=== PATIENT | male | born 1985 | race Caucasian/White ===

== ENCOUNTER 2018-10-02 15:48 | Emergency (ER) | payer MEDICAID, OTHER, SELFPAY ==
[~2018-10-02] VITALS: Ht 180.3 cm; Wt 112.8 kg
[2018-10-02] MEDS ORDERED: PRIL20TA2 PO (15:59)
[2018-10-02] MEDS ORDERED: LIDOCAINE W/EPINEPHRINE 1% 20ML VIAL SC ONE (17:30)
[2018-10-02] MEDS ORDERED: ADACEL/BOOSTRIX VACCINE (DIPHTH/PERTUSS/ACELL/TETANUS)0.5ML SYR (90715) IM ONE (17:30)
--- NOTE | 2018-10-02 18:04 | REP ---
RIGHT FOOT, TWO VIEWS: HISTORY: Foreign body. There is no acute fracture or dislocation. The joint spaces are normal in appearance. There is no radiopaque foreign body. IMPRESSION:There is no acute fracture or dislocation. Electronically Signed by Micah Fuentes MD 10/02/2018 06:13 P
[2018-10-02] MEDS ORDERED: KEFL500C17 PO (18:37)
[2018-10-02] MEDS ORDERED: CEPHALEXIN 500 MG CAP PO ONE (18:45)
[2018-10-02 18:53] VITALS: BP 127/67
== END 2018-10-02 19:04 | disposition home or self-care (01) ==
LOC: M ED 15:48
DX: S91.311A Laceration without foreign body, right foot, initial encounter (principal); W25.XXXA Contact with sharp glass, initial encounter; Y92.098 Other place in other non-institutional residence as the place of occurrence of the external cause; F17.200 Nicotine dependence, unspecified, uncomplicated; Z88.5 Allergy status to narcotic agent

== ENCOUNTER 2018-12-08 00:08 | Emergency (ER) | payer MEDICAID, OTHER ==
[~2018-12-08] VITALS: Ht 180.3 cm; Wt 109.1 kg
[~2018-12-08 00:08] MED LIST: KEFL500C17 PO; PRIL20TA2 PO
[2018-12-08 00:09] VITALS: BP 139/88
[2018-12-08] MEDS ORDERED: diphenhydrAMINE 50 MG CAP PO ONE (01:15)
[2018-12-08] MEDS ORDERED: predniSONE 20 MG TAB PO ONE (01:15)
[2018-12-08] MEDS ORDERED: hydrOXYzine 25 MG TAB PO STA (01:15)
[2018-12-08] MEDS ORDERED: HYDR-3363 PO (01:18)
[2018-12-08] MEDS ORDERED: PRED20TA PO (01:18)
== END 2018-12-08 01:40 | disposition home or self-care (01) ==
LOC: M ED 00:08
DX: L23.7 Allergic contact dermatitis due to plants, except food (principal); K21.9 Gastro-esophageal reflux disease without esophagitis; Z79.899 Other long term (current) drug therapy; Z88.5 Allergy status to narcotic agent; F17.210 Nicotine dependence, cigarettes, uncomplicated

== ENCOUNTER 2019-04-01 08:13 | Day surgery (SDC) | payer OTHER ==
[~2019-04-01] VITALS: Ht 180.3 cm; Wt 116.6 kg
[~2019-04-01 08:13] MED LIST changes: +HYDR-3363 PO; +LR 1,000 ML IV ONE; +NAPR-832 PO; +PRED20TA PO; +ceFAZolin SOD 1 GM in D5W MINI-BAG PLUS 50 ML IV ONE; +ceFAZolin SOD 2 GM in IV 1 EA IV ONE
[2019-04-01] MEDS ORDERED: PROPOFOL 200 MG/20 ML VIAL As Ordered ONE ×2 (09:10→13:45)
[2019-04-01] MEDS ORDERED: LIDOCAINE 2% INJ 100 MG/5 ML SDV (FOR ANES.) As Ordered ONE (09:10)
[2019-04-01] MEDS ORDERED: ROCURONIUM BROMIDE 50 MG/5 ML VIAL As Ordered ONE ×2 (09:10→12:55)
[2019-04-01] MEDS ORDERED: MIDAZOLAM INJ 2 MG/2 ML VIAL (J2250) As Ordered ONE (09:10)
[2019-04-01] MEDS ORDERED: ONDANSETRON 4MG/2ML VIAL (J2405) As Ordered ONE (09:11)
[2019-04-01] MEDS ORDERED: dexameTHASONE 4 MG/ML 1ML VIAL (J1100) As Ordered ONE (09:11)
[2019-04-01] MEDS ORDERED: fentaNYL 100 MCG/2 ML INJECTION (J3010) As Ordered ONE ×3 (09:11→13:39)
[2019-04-01] MEDS ORDERED: SUGAMMADEX SODIUM 500 MG/5 ML VIAL (BRIDION) As Ordered ONE (09:21)
[2019-04-01] MEDS ORDERED: LIDOCAINE 1% SDV INJ 30 ML VIAL As Ordered ONE (11:04)
[2019-04-01] MEDS ORDERED: BUPIVACAINE HCL 0.25% 30 ML VIAL As Ordered ONE (11:04)
[2019-04-01] MEDS ORDERED: KETOROLAC 60 MG/2 ML VIAL (J1885) As Ordered ONE (13:50)
[2019-04-01] MEDS ORDERED: ACETAMINOPHEN 1000MG 100ML IV BTL (OFIRMEV) (J0131 PER 10MG) As Ordered ONE (13:50)
[2019-04-01] MEDS ORDERED: ONDANSETRON 4MG/2ML VIAL (J2405) IV PRN ×2 (15:15→15:30)
[2019-04-01] MEDS ORDERED: HYDROMORPHONE HCL 0.5 MG/ 0.5 ML SYRINGE (J1170 PER 1) IV PRN (15:15)
[2019-04-01] MEDS ORDERED: fentaNYL 100 MCG/2 ML INJECTION (J3010) IV PRN (15:15)
[2019-04-01] MEDS ORDERED: LR 1,000 ML IV SCH (15:15)
[2019-04-01] MEDS ORDERED: NORCO, ANEXSIA 5/325MG TABLET (HYDROcodone/ACETAMINOPHEN) PO PRN ×3 (15:15)
[2019-04-01 16:15] VITALS: BP 117/70
[2019-04-01] MEDS ORDERED: KETOROLAC 30 MG/ML VIAL (J1885) IV PRN (21:00)
--- NOTE | 2019-04-02 13:00 | ROOPDOC ---
[facility] Report Of Operation Report of Operation DATE OF PROCEDURE: 04/01/19 PREPROCEDURE DIAGNOSES: Right inguinal hernia. POSTPROCEDURE DIAGNOSES: Right indirect inguinalscrotal hernia. PROCEDURE: Robotic-assisted laparoscopic repair of incarcerated right inguinal mesh scrotal hernia. SURGEON: Mohinder Ledezma MD SYNTHETIC PLASTERER: Arianna Mcduffie, ÓSCAR Ms. Mcduffie assisted me with the placement of ports, management of the robotic tower and instruments on the field as well as of the mesh what I scrubbed out at the surgeon's console and with closure of the ports. ANESTHESIA: Gen. anesthesia. ESTIMATED BLOOD LOSS: Approximately 20 mL. COMPLICATIONS: None. REMARKS: Moderately obese, rather very protuberant abdomen with a large long- standing, nonreducible right inguinalscrotal hernia. PROCEDURE NOTE: Incarcerated omentum and partially small bowel within the inguinal canal. Moderate sized defect with a very large long peritoneum/hernia sac that was fully reduced back in the abdomen. Large 10 x 15 polyester Progrip mesh placed to cover the myopectineal orifice posteriorly and secured to the Chris's ligament and superior medial transversalis fascia with 2-0 Vicryl. DESCRIPTION OF PROCEDURE: Patient received 2 g of Ancef IV preoperatively for wound prophylaxis. Patient was brought to the operating room, placed supine on the operating table. Compression boots placed in both lower extremities for DVT prophylaxis. After adequate general anesthesia started, he was placed on a lithotomy position. A cardenas catheter placed without difficulty. His abdomen and groin/pelvic area then prepped and draped in the usual sterile fashion. After a surgical timeout we began our surgery. Entry to the abdomen done through a small incision 2 cms above the umbilical skin cleft. A Veress needle is inserted on a controlled fashion. CO2 insufflation started to pressure 15 mmHg. Using the same incision a 8 mm robotic optical port was then placed under direct vision of laparoscope. The insertion site was inspected for injury and none was found. Patient was then positioned on a Trendelenburg position with the symptomatic (right) side tilted upwards for adequate view of the hernia defect. Two working ports placed to the right and left of the camera port along the same line. The da Maribel robot to our was then positioned in between the patient's legs and the trochars docked onto the robot. I then unscrubbed and took control of the camera and the laparoscopic instruments at the surgeon's console. A forced bipolar forceps with bipolar cautery on the left arm and A lisbeth-cut laparoscopic scissor with unipolar cautery in the right was used. Operative Findings: A large opening at the internal ring containing part of the wall of the cecum as well as the appendix within the inguinal canal. Part of the wall of the cecum makes up the hernia sac. The peritoneum was opened up about 5 cm above the superior edge of the fascial defect of the inguinal hernia starting at the medial umbilical ligament proceeding laterally towards the level of the anterior superior iliac spine. The preperitoneal space is entered in the peritoneum was bluntly dissected away from the back of the abdominal wall starting laterally moving medially ending in the space of Retzius between the bladder and the pubic tubercle. The preperitoneal dissection was extended partly superiorly but mostly inferiorly towards the iliopubic tract laterally and beyond the Chris's ligament and pubic tubercle inferiorly. The lower flap of the peritoneum was adequately mobilized away from the preperitoneal tissue. On approaching the inguinal hernia defect the hernia sac was circumferentially dissected pulled back into the preperitoneal space and carefully dissected off the testicular vessels and vas deferens. He has a large and redundant inguinal hernia sac which has good amount of fibrotic scaring. He also has some moderate amounts of cord lipoma within the core surrounding the spermatic cord structures that needed to be dissected out of the inguinal canal. I continued dissecting until the sac was fully detached and the cord lipoma was reduced back to the preperitoneum. After full reduction of the hernia sac the testicular cord and vessels were further parietalized following their usual anatomic course inferiorly after they diverged in course. The internal ring opening create that seems to limit the area where the mesh would adhere tox used a 0 stress affects barbed suture and narrowed the internal ring opening by opposing the muscles making up the lateral john of the internal opening to the inguinal ligament until only a small spaces left to accommodate the spermatic cord structures. This is more to create enough surface area for the mesh to adhere to prevent sucking the mesh into the internal ring and inguinal canal. After enough preperitoneal space was dissected and prepared, he checked for adequate hemostasis. The small amount of bleeding was suctioned off. I chose a 10 x 15 cm Parietex ProGrip self fixating mesh. I had my personnel security assistant trim the inferolateral edge to creare a "skirt" around the iliac vessels to avoid folding. This was folded with the center of the mesh marked for positioning. This was then delivered intra-abdominally through one of the trochars. In a controlled fashion this was positioned into the preperitoneal space with the medial side towards the pubic tubercle and the previously marked center of the mesh abutting the inferior epigastric vessels. The mesh was then carefully infolded and positioned in place with adequate overlap around the internal ring to cover the hernia defect. The mesh has adequate coverage for the direct hernia spaces as well as the femoral hernia space. This was carefully pressed onto the abdominal wall and made sure that it was flattened up. After careful placement of the mesh, the peritoneal opening was then closed with a running suture of 2-0V LOC suture. As the hernia sac was long and redundant I incorporated the hernia sac into the closure of the peritoneum. I then surveyed the abdomen and pelvis for any signs of injury. The pieces of the preperitoneal cord lipoma that was removed was retrieved by my personnel security assistant. Once satisfied I scrubbed back in. The instruments were removed. The abdomen was deflated. All ports were removed. The skin incisions were closed with 4-0 Monocryl in subcuticular fashion. The incisions were covered with Dermabond. The port sites were again infiltrated with local anesthesia. An ilioinguinal nerve block was also performed. . MOHINDER LEDEZMA MD Apr 02, 2019 13:00
== END 2019-04-01 16:25 | disposition home or self-care (01) ==
LOC: M SDC 08:13
PROVIDERS: ATTEND Surgery
DX: K40.30 Unilateral inguinal hernia, with obstruction, without gangrene, not specified as recurrent (principal); E66.01 Morbid (severe) obesity due to excess calories; Z79.899 Other long term (current) drug therapy; Z88.5 Allergy status to narcotic agent; F17.290 Nicotine dependence, other tobacco product, uncomplicated
CPT/HCPCS: 49650; 88302; C1781; J0131; J0690; J1100; J1885; J2250; J2405; J3010

== ENCOUNTER → 2020-08-13 | Outpatient (CLI) | payer OTHER ==
[~2020-08-13] MED LIST changes: -LR 1,000 ML IV ONE; -ceFAZolin SOD 1 GM in D5W MINI-BAG PLUS 50 ML IV ONE; -ceFAZolin SOD 2 GM in IV 1 EA IV ONE
--- NOTE | 2020-08-13 16:12 | REP ---
INDICATION: LOW BACK PAIN. COMPARISON: None. FINDINGS: Five views of the lumbosacral spine show no acute fracture, dislocation or subluxation. The intervertebral disc spaces are symmetric and well maintained. There is no spondylolysis or spondylolisthesis. The pedicles are intact bilaterally and there is no destructive osseous lesion. Incidental Schmorl's nodes are seen at all levels. IMPRESSION: Unremarkable lumbosacral spine series. <Electronically signed by Prosper Lopez > 08/13/20 [id number]
== END ==
LOC: M RAD 15:48
PROVIDERS: ATTEND Nurse Practitioner
DX: M54.5 Low back pain (principal)

== ENCOUNTER 2021-10-28 13:21 | Emergency (ER) | payer OTHER ==
[2021-10-28] MEDS ORDERED: PRED10TA2 PO (14:50)
[2021-10-28] MEDS ORDERED: NAPR-885 PO ×2 (14:51→14:52)
[2021-10-28 15:11] VITALS: BP 140/88
[2021-10-28] MEDS ORDERED: KETOROLAC 60MG 2ML VIAL IM ONE (15:15)
== END 2021-10-28 15:26 | disposition home or self-care (01) ==
LOC: M ED 13:21
DX: M54.50 Low back pain, unspecified (principal); M54.32 Sciatica, left side; F17.200 Nicotine dependence, unspecified, uncomplicated; Z88.5 Allergy status to narcotic agent; Z79.1 Long term (current) use of non-steroidal anti-inflammatories (NSAID)
CPT/HCPCS: 99283; J1885

== ENCOUNTER 2021-11-14 21:59 | Emergency (ER) | payer OTHER ==
[~2021-11-14] VITALS: Ht 180.3 cm; Wt 109.1 kg
[~2021-11-14 21:59] MED LIST changes: +NAPR-885 PO; +PRED10TA2 PO
[2021-11-15] MEDS ORDERED: AMOX875T2 PO (05:13)
[2021-11-15] MEDS ORDERED: TRAM50TA2 PO (05:13)
[2021-11-15] MEDS ORDERED: AUGMENTIN 875 MG TAB PO ONE (05:15)
[2021-11-15] MEDS ORDERED: traMADol 50 MG TAB PO ONE (05:15)
[2021-11-15 05:23] VITALS: BP 136/66
== END 2021-11-15 05:26 | disposition home or self-care (01) ==
LOC: M ED 21:59
DX: K04.7 Periapical abscess without sinus (principal); Z88.5 Allergy status to narcotic agent

== ENCOUNTER → 2022-03-18 | Outpatient (CLI) | payer OTHER ==
[~2022-03-18] MED LIST changes: +AMOX875T2 PO; +TRAM50TA2 PO
== END ==
LOC: M OUTALCOH 08:02
PROVIDERS: ATTEND Psychiatry & Neurology Psychiatry
DX: F10.10 Alcohol abuse, uncomplicated (principal)

== ENCOUNTER 2022-04-29 12:50 | Outpatient (RCR) | payer OTHER | END 2022-04-30 | LOC: M OUTALCOH 12:50 | PROVIDERS: ATTEND Psychiatry & Neurology Psychiatry | DX: F10.20 Alcohol dependence, uncomplicated (principal) ==

== ENCOUNTER 2022-05-20 10:05 | Outpatient (RCR) | payer OTHER | END 2022-05-31 | LOC: M OUTALCOH 10:05 | PROVIDERS: ATTEND Psychiatry & Neurology Psychiatry | DX: F10.20 Alcohol dependence, uncomplicated (principal) ==

== ENCOUNTER 2022-06-17 09:10 | Outpatient (RCR) | payer OTHER | END 2022-06-28 | LOC: M OUTALCOH 09:10 | PROVIDERS: ATTEND Psychiatry & Neurology Psychiatry | DX: F10.20 Alcohol dependence, uncomplicated (principal) ==

== ENCOUNTER 2022-07-22 11:30 | Outpatient (RCR) | payer OTHER | END 2022-07-29 | LOC: M OUTALCOH 11:30 | PROVIDERS: ATTEND Psychiatry & Neurology Psychiatry | DX: F10.20 Alcohol dependence, uncomplicated (principal) ==

== ENCOUNTER 2022-09-23 10:48 | Outpatient (RCR) | payer OTHER | END 2022-09-28 | LOC: M OUTALCOH 10:48 | PROVIDERS: ATTEND Psychiatry & Neurology Psychiatry | DX: F10.20 Alcohol dependence, uncomplicated (principal) ==

== ENCOUNTER 2022-10-14 09:20 | Outpatient (RCR) | payer OTHER | END 2022-10-28 | LOC: M OUTALCOH 09:20 | PROVIDERS: ATTEND Psychiatry & Neurology Psychiatry | DX: F10.20 Alcohol dependence, uncomplicated (principal) ==

== ENCOUNTER 2022-11-04 13:15 | Outpatient (RCR) | payer OTHER | END 2022-11-28 | LOC: M OUTALCOH 13:15 | PROVIDERS: ATTEND Psychiatry & Neurology Psychiatry | DX: F10.20 Alcohol dependence, uncomplicated (principal) ==

== ENCOUNTER 2023-06-05 09:04 | Emergency (ER) | payer OTHER ==
[~2023-06-05] VITALS: Ht 180.3 cm; Wt 111.7 kg
[2023-06-05 09:06] VITALS: TEMP 97.5
[2023-06-05 10:19] LABS: BASO # 0.1 10^3/uL (0.0-0.2); EOS # 0.3 10^3/uL (0.0-0.5); EOS % 3.8 % (0.0-3.0); HEMATOCRIT 48.5 % (42.0-52.0); HEMOGLOBIN 15.7 g/dl (13.5-17.5); LYMPH # 1.8 10^3/uL (1.5-5.0); MEAN CORPUSCULAR HEMOGLOBIN 29.6 pg (27.0-33.0); MEAN CORPUSCULAR HGB CONC 32.4 g/dl (32.0-36.5); MEAN CORPUSCULAR VOLUME 91.3 fl (80.0-96.0); MONO # 0.7 10^3/uL (0.0-0.8); MONO % 9.7 % (2.0-8.0); NEUTROPHILS % 58.2 % (36.0-66.0); PLATELET COUNT, AUTOMATED 264 10^3/uL (150-450); RED BLOOD COUNT 5.31 10^6/uL (4.30-6.10); WHITE BLOOD COUNT 6.8 10^3/uL (4.0-10.0)
[2023-06-05 10:44] LABS: LIPASE 32 U/L (12-53)
[2023-06-05 10:46] LABS: ALBUMIN 4.1 G/DL (3.2-5.2); ALKALINE PHOSPHATASE 143 U/L (46-116); ALT/SGPT 34 U/L (7.0-40); AST/SGOT 21 U/L (<34); BILIRUBIN,DIRECT 0.2 MG/DL (<0.4); BILIRUBIN,TOTAL 0.6 MG/DL (0.3-1.2); BLOOD UREA NITROGEN 15 MG/DL (9-23); CALCIUM LEVEL 9.5 MG/DL (8.5-10.1); CARBON DIOXIDE LEVEL 30 MMOL/L (20-31); CHLORIDE LEVEL 103 MMOL/L (98-107); CREATININE FOR GFR 0.69 MG/DL (0.70-1.30); GLOMERULAR FILTRATION RATE > 60.0 (>60); GLUCOSE, FASTING 75 MG/DL (60-100); POTASSIUM SERUM 4.5 MMOL/L (3.5-5.1); SODIUM LEVEL 138 MMOL/L (136-145); TOTAL PROTEIN 7.6 G/DL (5.7-8.2)
[2023-06-05] MEDS: MORPHINE 2 MG/ML 1ML VIAL IV PRN (10:59)
[2023-06-05] MEDS: ONDANSETRON 4MG 2ML VIAL IV ONE (10:59)
[2023-06-05] MEDS: NS 1,000 ML IV ONE (10:59)
[2023-06-05] MEDS ORDERED: ISOVUE-370 76% 100ML VIAL As Ordered ONE (11:00)
[2023-06-05 11:43] LABS: RSV AMPLIFICATION NEGATIVE (NEGATIVE)
[2023-06-05] MEDS ORDERED: COLA100C5 PO (13:25)
[2023-06-05 13:30] VITALS: BP 114/65; O2SAT 97
== END 2023-06-05 13:41 | disposition home or self-care (01) ==
LOC: M ED 09:04
DX: K40.90 Unilateral inguinal hernia, without obstruction or gangrene, not specified as recurrent (principal); K59.00 Constipation, unspecified; K21.9 Gastro-esophageal reflux disease without esophagitis; Z88.5 Allergy status to narcotic agent; Z79.899 Other long term (current) drug therapy
CPT/HCPCS: 74177; 76857; 80048; 80076; 83690; 85025; 87631; 96361; 96374; 96375; 99284; J2405; Q9967